=== PATIENT | female | born 1960 | race Hispanic/Latino ===

== ENCOUNTER → 2024-07-15 | Outpatient (CLI) | payer OTHER ==
--- NOTE | 2024-07-15 16:53 | HMCIMG ---
CERV SPINE 2-3VWS HISTORY: Pain COMPARISON: None FINDINGS: 3 images of cervical spine were obtained. Mild degenerative changes are seen. There is straightening of normal lordotic curvature which may be related to muscle spasm or positioning. No loss of vertebral height is seen. No fracture or dislocation is seen. Degenerative changes are seen. IMPRESSION: 1. No fracture is seen.
--- NOTE | 2024-07-15 16:53 | HMCIMG ---
LUMBAR SPINE 2-3VWS HISTORY: Arthritis COMPARISON: None FINDINGS: 3 images of lumbar spine were obtained. There are degenerative changes with lumbar spine spondylosis. There is straightening of normal lordotic curvature which may be related to muscle spasm or positioning. No loss of vertebral height is seen. No fracture or dislocation is seen. Degenerative changes are seen. IMPRESSION: 1. No fracture is seen. DJD.
--- NOTE | 2024-07-15 16:56 | HMCIMG ---
HAND 2+VWS RT LIMITED HISTORY: Arthritis COMPARISON: None TECHNIQUE: 2 images of right hand were obtained. FINDINGS: There is no acute displaced fracture or dislocation. Interphalangeal joint space narrowing and radiocarpal joint space narrowing are seen. Degenerative changes are seen. IMPRESSION: 1. Findings as described above.
== END | disposition home or self-care (01) ==
LOC: RAH 15:55
PROVIDERS: ATTEND Internal Medicine
DX: M19.041 Primary osteoarthritis, right hand (principal); M47.812 Spondylosis without myelopathy or radiculopathy, cervical region; M47.816 Spondylosis without myelopathy or radiculopathy, lumbar region; M25.841 Other specified joint disorders, right hand; M25.50 Pain in unspecified joint; M54.50 Low back pain, unspecified
CPT/HCPCS: 72040; 72100; 73120